=== PATIENT | male | born 1970 | race Caucasian/White ===

== ENCOUNTER 2018-07-30 15:41 | Emergency (ER) | payer BC ==
[~2018-07-30] VITALS: Ht 175.3 cm; Wt 90.7 kg
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
[2018-07-30 15:58] VITALS: BP 143/80
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
--- NOTE | 2018-07-30 16:14 | NUR ---
ED Nurse Note: PT TO CT VIA WHEELCHAIR.
--- NOTE | 2018-07-30 16:35 | NUR ---
ED Nurse Note: PT BACK FROM CT VIA WHEELCHAIR.
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
--- NOTE | 2018-07-30 17:03 | Diagnostic Imaging Report ---
Indication: Pain and swelling Technique: 3 views of the right knee Comparison: None Findings: There is a suprapatellar joint effusion evident. No acute fractures. No dislocations. Impression: Suprapatellar effusion, raises concern for internal derangement. No acute bony trauma
[2018-07-30] MEDS ORDERED: IBUPROFEN800 M1 PO (17:06)
[2018-07-30 17:16] VITALS: BP 136/76
--- NOTE | 2018-07-30 17:16 | NUR ---
ED Nurse Note: PT LAYING PEACEFULLY IN BED IN NAD. AOX4. PRESCRIPTIONS AND DISCHARGE PAPERWORK EXPLAINED TO PT. PT VERBALIZES UNDERSTANDING AND ALL QUESTIONS ANSWERED. PRESCRIPTIONS AND DISCHARGE PAPERWORK GIVEN TO PT AND ID WRISTBAND REMOVED. PT WALKED OUT OF ER WITH STEADY GAIT AND ALL BELONGINGS.
== END 2018-07-30 17:16 | disposition home or self-care (01) ==
LOC: EMR 16:21
DX: S16.1XXA Strain of muscle, fascia and tendon at neck level, initial encounter (principal); S70.11XA Contusion of right thigh, initial encounter; S00.93XA Contusion of unspecified part of head, initial encounter; W05.2XXA Fall from non-moving motorized mobility scooter, initial encounter; Y92.89 Other specified places as the place of occurrence of the external cause; M25.461 Effusion, right knee
CPT/HCPCS: 70450; 70486; 72125; 99284